=== PATIENT | male | born 1940 | race Caucasian/White ===

== ENCOUNTER → 2019-06-30 16:11 | Outpatient (CLI) | payer MEDICARE, SELFPAY ==
[2019-06-30 19:40] LABS: Vancomycin,Trough 11.9 mcg/ml (10.0-20.0)
== END ==
PROVIDERS: Visit Provider Internal Medicine
DX: Z51.81 Encounter for therapeutic drug level monitoring (principal)
CPT/HCPCS: 80202

== ENCOUNTER → 2019-07-07 15:21 | Outpatient (CLI) | payer OTHER, SELFPAY ==
[2019-07-07 16:44] LABS: Vancomycin,Trough 10.6 mcg/ml (10.0-20.0)
== END ==
PROVIDERS: Visit Provider Internal Medicine
DX: Z51.81 Encounter for therapeutic drug level monitoring (principal)
CPT/HCPCS: 80202

== ENCOUNTER → 2019-07-14 13:31 | Outpatient (CLI) | payer OTHER, SELFPAY ==
[2019-07-14 14:01] LABS: Vancomycin,Trough 12.3 mcg/ml (10.0-20.0)
== END ==
PROVIDERS: Visit Provider Internal Medicine
DX: Z51.81 Encounter for therapeutic drug level monitoring (principal)
CPT/HCPCS: 80202